=== PATIENT | female | born 1955 | race Caucasian/White ===

== ENCOUNTER 2017-05-25 17:02 | Emergency (ER) | payer MEDICAID ==
[~2017-05-25] VITALS: Ht 160 cm; Wt 45.4 kg
[~2017-05-25 17:02] MED LIST: MUPI15CR TP
[2017-05-25] MEDS ORDERED: HYDROcodone/APAP 5 MG/325 MG (LORTAB) TAB PO ONE (17:30)
[2017-05-25] MEDS ORDERED: fentaNYL INJECTION 100 MCG/2 ML AMP IVP ONE ×2 (17:45→18:00)
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
[2017-05-25] MEDS ORDERED: LIDOCAINE 2% 20 ML (XYLOCAINE) VIAL INJ ONE (18:00)
[2017-05-25] MEDS ORDERED: HYDR-757 PO (18:02)
[2017-05-25] MEDS ORDERED: RX-OXYCODONE/APAP 5-325 MG #4 TAB PK PO PRN (18:30)
[2017-05-25] MEDS ORDERED: TRAM-42 PO (18:32)
--- NOTE | 2017-05-25 18:36 | Diagnostic Imaging Report ---
EXAMINATION: Left wrist at 06:09 p.m. INDICATION: None given. FINDINGS: Three views were obtained. There is an impacted comminuted slightly displaced volarly angulated fracture of the distal radial metaphysis. No other fracture or acute bony abnormality is noted. 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 The soft tissues are unremarkable. IMPRESSION: There is an impacted comminuted slightly displaced volarly angulated fracture of the distal radial metaphysis. No other acute bony abnormality is noted. Dictated by: Dictated on workstation # [id number]
[2017-05-25] MEDS ORDERED: cloNIDine 0.1 MG (CATAPRES) TAB PO ONE (19:00)
[2017-05-25 19:08] VITALS: BP 182/119
--- NOTE | 2017-05-25 19:13 | Diagnostic Imaging Report ---
INDICATION: Status post reduction. COMPARISON: Earlier the same day FINDINGS: Frontal and lateral radiographic views of the left wrist were obtained status post reduction and placement of cast material. As a result, there is improved alignment of the fracture fragments. There is some mild residual angulation with the apex projecting anteriorly. Radiocarpal joint space is maintained. Acute fractures of the distal radius are again identified. No new additional acute osseous abnormalities are seen on this exam, but evaluation is suboptimal given obscuration by overlying cast material. IMPRESSION: 1. Improved alignment of the distal left radial fracture status post reduction and placement of cast material as described above. Dictated by: Dictated on workstation # [id number]
== END 2017-05-25 19:08 | disposition home or self-care (01) ==
LOC: EDUNIT# 17:02 → ER 17:04
DX: S52.502A Unspecified fracture of the lower end of left radius, initial encounter for closed fracture (principal); M19.049 Primary osteoarthritis, unspecified hand; Z87.891 Personal history of nicotine dependence; Z90.89 Acquired absence of other organs; V18.4XXA Pedal cycle driver injured in noncollision transport accident in traffic accident, initial encounter
CPT/HCPCS: 73100; 73110

== ENCOUNTER → 2021-08-12 | Outpatient (CLI) | payer MEDICARE, MEDICAID ==
[~2021-08-12] MED LIST changes: +HYDR-4226 PO; +TRAM-42 PO
--- NOTE | 2021-08-12 17:23 | Diagnostic Imaging Report ---
INDICATION: Left wrist pain COMPARISON: 05/25/2017 TECHNIQUE: 3 radiographs of the left wrist dated 08/12/2021 FINDINGS: Volar plate and screw fixation of the distal radius is noted transfixing a chronically healed distal radial fracture without evidence of hardware complication. No acute fracture or dislocation. Ulna positive variant is noted with new subchondral cyst formation within the ulnar styloid. 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 Stable ossific density is identified at this location. IMPRESSION: No acute osseous abnormality. Plate and screw fixation of the distal radius without hardware complication. Scattered degenerative changes including severe degenerative changes of the 1st CMC joint. Ulna positive variant. Dictated by: Dictated on workstation # [id number]
== END ==
LOC: ORTHO 15:15
PROVIDERS: ATTEND Orthopaedic Surgery
DX: M18.12 Unilateral primary osteoarthritis of first carpometacarpal joint, left hand (principal)
CPT/HCPCS: 73110; G0463; 99213

== ENCOUNTER 2021-09-26 05:30 | Outpatient (CLI) | payer MEDICARE, MEDICAID ==
[~2021-09-26] VITALS: Ht 160 cm; Wt 45.5 kg
[2021-09-26] MEDS ORDERED: ACET-2267 PO (13:18)
== END 2021-09-26 13:27 | disposition home or self-care (01) ==
LOC: PREOP 05:30
PROVIDERS: ATTEND Orthopaedic Surgery
DX: Z01.818 Encounter for other preprocedural examination (principal)

== ENCOUNTER 2021-10-03 07:30 | Day surgery (SDC) | payer MEDICARE, MEDICAID ==
[2021-10-03] VITALS (11 sets, daily range): BP systolic 134–188; BP diastolic 79–110
[~2021-10-03] VITALS: Ht 160 cm; Wt 45.5 kg
[~2021-10-03 07:30] MED LIST changes: +ACET-2267 PO
[2021-10-03] MEDS ORDERED: ceFAZolin INJECTION 1,000 MG VIAL IV ONE (08:00)
[2021-10-03] MEDS: LACTATED RINGERS 1,000 ML IV PRN ×2 (08:10→10:59)
[2021-10-03] MEDS ORDERED: NEO/POLY/BAC (NEOSPORIN) OINT 15 GM TUBE ONE (08:38)
[2021-10-03] MEDS ORDERED: BUPIVACAINE 0.25% 10 ML (SENSORCAINE) VIAL ONE (08:39)
[2021-10-03] MEDS ORDERED: fentaNYL INJ 100 MCG/2 ML AMP ONE (09:39)
[2021-10-03] MEDS ORDERED: MIDAZOLAM 2 MG/2 ML (VERSED) VIAL ONE (09:39)
[2021-10-03] MEDS ORDERED: hydrALAZINE (APESOLINE) 20 MG/ML VIAL ONE (09:51)
[2021-10-03] MEDS ORDERED: ONDANSETRON 4 MG/2 ML (SDV) Z0FRAN ONE (09:51)
[2021-10-03] MEDS ORDERED: LIDOCAINE PF 2% 5 ML (XYLOCAINE) VIAL ONE (09:51)
[2021-10-03] MEDS ORDERED: proPOfol 200 MG/20 ML (DIPRIVAN) VIAL IV ONE (09:51)
[2021-10-03] MEDS ORDERED: PHENYLEPHRINE 100 MCG/ML 10 ML (ANESTHESIA) SYR ONE (10:46)
[2021-10-03] MEDS ORDERED: SEVOFLURANE (ULTANE) 15 ML INHAL SOLN ONE (10:46)
[2021-10-03] MEDS ORDERED: TRAM50TA3 PO (10:49)
--- NOTE | 2021-10-03 10:57 | Operative Report - Ortho ---
Operative Report Surgeon (s)/Grain Farmer (s) Surgeon ANGIE EPPS MD Grain Farmer n/a Pre-Operative Diagnosis RETAINED HARDWARE LEFT WRIST Post-Operative Diagnosis same Operative Report Date of Procedure: Oct 03, 2021 Name of Procedure Performed: Removal of Left Distal Radius Plate and Screws Description & Findings After obtaining informed consent and marking the patient in the preoperative holding area, the patient was administered IV antibiotics. Taken to the operating room and general anesthesias was induced. Surgical timeout was taken. The left upper extremity was prepped and draped in the usual sterile fashion. Prior surgical site was reexposed. Radial artery was careful protected. Disse ction was carried down to the radial border of the plate. Small Faby's were used to maintain exposure. The heads of the screws were cleared with an elevator. Screwdriver was used to remove 8 screws. Small osteotome was then used to elevate the plate and the plate was removed. C-arm was used to obtain AP and lateral images and demonstrated removal of all implants without any c omplication. Wound was irrigated with saline. Subcutaneous layer was closed with 3-0 vicryl and skin was closed with 4-0 nylon. Wound was injected with local anesthetic and dressed with antibiotic ointment, xeroform, 4x4's, robert, and delma wrap. Patient tolerated the procedure well and was stable to the recovery room. Anesthesia Type General Estimated Blood Loss minimal Specimen(s) collected/removed None ANGIE EPPS MD Oct 03, 2021 10:57
--- NOTE | 2021-10-03 11:16 | Diagnostic Imaging Report ---
INDICATION: Fluoroscopy for hardware removal. Fluoroscopy was provided in the OR during distal radius hardware removal. Two images were obtained. A total of 4 seconds of fluoroscopic time was utilized. IMPRESSION: Fluoroscopy for right wrist hardware removal. Dictated by: Dictated on workstation # [id number]
== END 2021-10-03 12:50 ==
LOC: SDC 07:30
PROVIDERS: ATTEND Orthopaedic Surgery
DX: Z47.2 Encounter for removal of internal fixation device (principal); Z98.890 Other specified postprocedural states; M25.532 Pain in left wrist
CPT/HCPCS: 76000; 87081

== ENCOUNTER 2022-08-10 11:24 | Emergency (ER) | payer MEDICARE, MEDICAID ==
[~2022-08-10] VITALS: Ht 160 cm; Wt 45.0 kg
[~2022-08-10 11:24] MED LIST changes: +TRAM50TA3 PO
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
[2022-08-10] MEDS ORDERED: ACETAMINOPHEN 500 MG TAB (TYLENOL) PO ONE (12:15)
[2022-08-10] MEDS ORDERED: KETOROLAC 30 MG/ML VIAL IM ONE (12:15)
--- NOTE | 2022-08-10 12:26 | Diagnostic Imaging Report ---
EXAMINATION: Lumbar spine radiographs, 3 views. COMPARISON: August 15, 2015. HISTORY: 67-year-old female, low back pain. FINDINGS: There is a prominent lumbar dextroscoliosis. There are limitations of the study given the degree of scoliosis and overlap on the lateral views in particular. There is no identified definite compression deformity or fracture. The sacroiliac joints are grossly unremarkable in appearance. There are disc degenerative changes of the lumbar spine. IMPRESSION: 1. Prominent lumbar dextroscoliosis. 2. Multilevel disc degenerative changes of the lumbar spine. 3. No definite compression deformity or fracture. Dictated by: Dictated on workstation # [id number]
[2022-08-10] MEDS ORDERED: NAPR-1088 PO (12:36)
[2022-08-10 12:45] VITALS: BP 165/100
== END 2022-08-10 12:45 | disposition home or self-care (01) ==
LOC: EDUNIT# 11:24 → ER 11:28
DX: M54.50 Low back pain, unspecified (principal); G89.29 Other chronic pain; Z88.6 Allergy status to analgesic agent; Z28.310 Unvaccinated for COVID-19
CPT/HCPCS: 72100